=== PATIENT | female | born 1955 | race Caucasian/White ===

== ENCOUNTER → 2023-06-20 13:44 | Outpatient (REF) | payer MEDICARE, SELFPAY | LOC: WDC 13:44 | PROVIDERS: ATTENDING PHYSICIAN Family Medicine | DX: Z12.31 Encounter for screening mammogram for malignant neoplasm of breast (principal); M81.0 Age-related osteoporosis without current pathological fracture | CPT/HCPCS: 77063; 77067; 77080 ==

== ENCOUNTER 2023-12-10 18:18 | Emergency (ER) | payer MEDICARE, SELFPAY ==
[2023-12-10 18:22] VITALS: BP 113/95
[2023-12-10 18:34] LABS: % Basophils 0.6 % (0-2); % Immature Granulocytes 0.3 % (0-0.5); % Lymphocytes 24.3 % (20.5-51.1); % Monocytes 10.6 % (1.7-9.3); % Neutrophils 63.2 % (42.2-75.2); Absolute Eosinophils 0.1 10^3/uL (0-0.7); Absolute Lymphocytes 1.7 10^3/uL (1.2-3.4); Absolute Monocytes 0.7 10^3/uL (0.1-0.6); Absolute Neutrophils 4.4 10^3/uL (1.4-6.5); Hematocrit 36.7 % (37.0-47.0); Hemoglobin 13.2 g/dL (12.0-16.0); Mean Corpuscular Hgb 31.1 pg (27.0-31.0); Mean Corpuscular Volume 86.4 fL (81.0-99.0); Mean Platelet Volume 10.6 fL (7.4-10.4); Nucleated Red Blood Cells % 0 %; Platelet Count 258 10^3/uL (130-400); Red Blood Cell Count 4.25 10^6/uL (4.20-5.40); Red Cell Dist. Width 12.3 % (11.5-14.5)
[2023-12-10 19:06] LABS: ALT (SGPT) 24 U/L (0-35); AST (SGOT) 31 U/L (14-36); Albumin 4.6 g/dl (3.5-5.0); Alkaline Phosphatase 68 U/L (38-126); Blood Urea Nitrogen 17 mg/dl (7-17); Calcium 9.7 mg/dl (8.4-10.2); Carbon Dioxide 24 mmol/L (22-30); Chloride 101 mmol/L (98-107); Glucose 111 mg/dl (70-99); Potassium 4.2 mmol/L (3.5-5.1); Sodium 135 mmol/L (135-145); Total Bilirubin 0.4 mg/dl (0.2-1.3); Total Protein 7.2 g/dl (6.3-8.2); eGFR > 60.00
--- NOTE | 2023-12-10 21:07 | ED.GENMED ---
History of Present Illness
General
Chief Complaint: Musculo-Skeletal Complaint
Source: patient
Exam Limitations: none
Time Seen by Provider: 12/10/23 20:07
Nursing documentation reviewed up to this point in time: agreed with
History of Present Illness
History of Present Illness:
Patient is a 68-year-old female who presented to the with bilateral leg pain. Patient reports she saw urology, Dr. Vizcaino today for UTI symptoms was diagnosed with UTI and started on Bactrim. Took 1 Bactrim DS at 1:30 PM and at 4 PM developed
bilateral leg pain. She reports like it was very intense. She never had symptoms like this before. She had no fever no injury no redness. No numbness Tingling weakness. She went to urgent care and they recommend that she have blood work
checked and sent her here.
She reports since being here her pain is much better has subsided.
Review of Systems
Review of Systems
Allergies reviewed?: Yes
All Other Systems: ROS reviewed and negative except as documented in HPI and ROS
Constitutional: Reports no symptoms; Denies fever, fatigue or chills
Respiratory: Reports no symptoms
Cardiac: Reports no symptoms
ABD/GI: Reports no symptoms
: Reports frequency
Musculoskeletal: Reports other (Bilateral leg pain)
Skin: Reports no symptoms; Denies rash
Neurological: Reports no symptoms; Denies numbness
Hematologic/Lymphatic: Reports no symptoms
Psychiatric: Reports no symptoms
Phy Exam
General Physical Exam
General Presentation: no apparent distress
General age: appears stated age
General Skin: warm and dry
General Habitus: normal
General Mental: alert
General Hydration: appears well hydrated
Cardiovascular Exam
Cardiovascular Exam: regular rate/rhythm, no murmur and normal peripheral pulses
Pulmonary Exam
Pulmonary Exam: lungs clear and no respiratory distress
Neurological Exam
Neurological Exam: alert, oriented x3, no motor deficits and no sensory deficits
Musculoskeletal Exam
Musculoskeletal Exam: full ROM and other (Strong distal pulses to bilateral lower extremities normal inspection no erythema no swelling normal strength)
Skin Exam
Skin Exam: normal color and warm/dry
Psychiatric Exam
Psychiatric Exam: normal mood/affect
Course
Orders/Labs/Results
Orders:
Orders
12/10/23 18:28
CMP [Comprehensive Metabolic Panel] Urgent
Complete Blood Count/With Diff Urgent
Abnormal Lab Results
12/10/23
18:28
Hct 36.7 L %
(37.0-47.0)
MCH 31.1 H pg
(27.0-31.0)
MPV 10.6 H fL
(7.4-10.4)
Absolute Monos (auto) 0.7 H 10^3/uL
(0.1-0.6)
Monocytes % 10.6 H %
(1.7-9.3)
Glucose 111 H mg/dl
(70-99)
12/10/23 18:28
12/10/23 18:28
Vital Signs
Initial and Last Documented VS:
Initial Vital Signs
Temp Pulse Resp BP Pulse Ox
98.3 F 76 20 113/95 96
12/10/23 18:22 12/10/23 18:22 12/10/23 18:22 12/10/23 18:22 12/10/23 18:22
Last Documented Vital Signs
Temp Pulse Resp BP Pulse Ox
98.3 F 76 18 113/72 99
12/10/23 18:22 12/10/23 21:14 12/10/23 21:14 12/10/23 21:14 12/10/23 21:14
Cosmetic Consultant consulted with Physician
Cosmetic Consultant consulted with physician?: Yes
Name of Physician Consulted: DR Jarrett
MDM/Problems Addressed
MDM/Problems Addressed:
Patient is a 68-year-old female who presented with bilateral leg pain starting at 4 PM. She is attributing this to her taking 1 dose of Bactrim at 1:30 PM. She denies any other injury or cause of symptoms. Upon my exam however patient reports
that her symptoms were subsiding if she feels much better. She was initially started on Bactrim by urology today for UTI.
She presents awake alert no acute distress no abnormality on exam no obvious swelling redness to her leg she has strong pulses bilaterally normal exam. She is nontoxic. She denies any back pain. She denies any weakness lower extremities. Her
labs unremarkable.
She reports she will stop her Bactrim and call urology tomorrow morning.
It is unclear if Bactrim is the cause of her leg pain however there are no concerning findings on exam her labs unremarkable and she is feeling better. Discussed with ED attending. she is well hydrated and no other concerning causes/findings for
her s/s that are resolved.
Will d/c home
*Pulse Oximetry
Patient hypoxic: no
*Critical Care Note
Total Time (30-74mins, 75-104mins- exclusive of procedures): Not Applicable
ED Attending Note
-
Portions of this chart may have been created with voice recognition software.� Occasional wrong word or��sound alike� substitutions may have occurred due to the inherent limitations of voice recognition software.
Discharge Plan
Departure
Patient Disposition: Home (Routine Discharge)
Date of Disposition: 12/10/23
Time of Disposition: 21:05
Patient with high blood pressure during this ER visit?: Yes
Condition: Fair
Covid-19: Not Applicable
Discharge Problem:
Acute leg pain
Instructions: Muscle and Bone Pain (DC)
Referrals:
NONE,* [Active] -
Activity Restrictions/Additional Instructions:
As discussed return if any worsening of symptoms worsening leg pain fever chills redness. Follow-up with your urologist for antibiotic change call tomorrow.
Interventions
Interventions:
*Risk Screen - Suicide Last Done: 12/10/23 18:22
*General Assessment Last Done: 12/10/23 18:22
*Neglect/Abuse Screening Last Done: 12/10/23 18:22
ED- Fall Risk Assessment Last Done: 12/10/23 20:26
*ED COVID-19 Vaccine History Last Done: 12/10/23 20:26
*Nursing Disposition Last Done: 12/10/23 21:15
ED-Musculoskeletal Assessment Last Done: 12/10/23 20:26
Discharge Date and Time
Discharge Date/Time: 12/10/23 21:15
Print Language: MALAYSIAN
[2023-12-10 21:14] VITALS: BP 113/72
== END 2023-12-10 21:15 | disposition home or self-care (01) ==
LOC: EMR 18:18
PROVIDERS: Student in an Organized Health Care Education/Training Program; EMERGENCY PHYSICIAN Emergency Medicine; FAMILY PHYSICIAN Family Medicine
DX: M79.604 Pain in right leg (principal); M79.605 Pain in left leg; R03.0 Elevated blood-pressure reading, without diagnosis of hypertension; N39.0 Urinary tract infection, site not specified
CPT/HCPCS: 99283; 80053; 85025

== ENCOUNTER 2023-12-11 03:16 | Emergency (ER) | payer MEDICARE, SELFPAY ==
[2023-12-11 03:18] VITALS: BP 106/52
--- NOTE | 2023-12-11 03:22 | ED.GENMED ---
History of Present Illness
<ELLEN Herrera (Lenka) - Last Filed: 12/11/23 04:32>
General
Chief Complaint: Extremity Pain (non-traumatic)
Source: patient and spouse
Exam Limitations: none
Time Seen by Provider: 12/11/23 03:21
Nursing documentation reviewed up to this point in time: agreed with
History of Present Illness
History of Present Illness:
Pt is a 68 yo female with no PMHx who presents to the ED with worsening B/L leg pain x 1d. Pt was seen in ED 6 hours ago for leg pain after taking 1 dose of bactrim for her UTI. Pt had resolved upon discharge. Pt states since leaving the ED, she
took 2 ibuprofen at 2100. She awoke at 0200 this morning with B/L leg aching down the front and back, 'it feels like a deep muscle ache, but also similar to my sciatica'. She is most comfortable when standing and walking, extremely uncomfortable
when laying and sitting. The pain is improved with leaning forward. She took 2 more ibuprofen at 0300. Endorses some lower back pain near her sacrum. She denies weakness, numbness, tingling, imbalance, chest pain, dyspnea, abdominal pain, saddle
anesthesia. Pt is normally very active, walks 3 miles daily. Had no issues yesterday morning.
No hx of vascular disease, heart conditions, or neurologic problems.
Past History
<ELLEN Herrera (Lenka) - Last Filed: 12/11/23 04:32>
Social History
Tobacco: Non-smoker
Alcohol: None
Drug: None
Personal:
Living: with family
Phy Exam
<ELLEN Herrera (Lenka) - Last Filed: 12/11/23 04:32>
General Physical Exam
General Presentation: moderate distress (when sitting/laying supine)
General age: appears stated age
General Skin: warm and dry
General Habitus: normal
General Mental: alert
General Hydration: appears well hydrated
Cardiovascular Exam
Cardiovascular Exam: regular rate/rhythm and normal peripheral pulses
Pulmonary Exam
Pulmonary Exam: lungs clear and no respiratory distress
Gastrointestinal Exam
Gastrointestinal Exam: non tender, soft and non distended
Neurological Exam
Neurological Exam: alert, oriented x3, normal reflexs (achilles reflex intact b/l), no sensory deficits, speech normal and normal gait
Musculoskeletal Exam
Musculoskeletal Exam: full ROM, back pain (lower back, near sacrum), neuro vasc intact and other (positive straight leg raise)
Course
<ELLEN Herrera (Lenka) - Last Filed: 12/11/23 04:32>
Orders/Labs/Results
Orders:
Orders
12/11/23 03:40
Ketorolac [Toradol] 30 mg IM NOW STA
Vital Signs
Initial and Last Documented VS:
Initial Vital Signs
Temp Pulse Resp BP Pulse Ox
97.8 F 86 24 106/52 100
12/11/23 03:18 12/11/23 03:18 12/11/23 03:18 12/11/23 03:18 12/11/23 03:18
Last Documented Vital Signs
Temp Pulse Resp BP Pulse Ox
97.8 F 86 24 106/52 100
12/11/23 03:18 12/11/23 03:18 12/11/23 03:18 12/11/23 03:18 12/11/23 03:18
<Pramod Goss DO - Last Filed: 12/11/23 04:21>
Orders/Labs/Results
Orders:
Orders
12/11/23 03:40
Ketorolac [Toradol] 30 mg IM NOW STA
Vital Signs
Initial and Last Documented VS:
Initial Vital Signs
Temp Pulse Resp BP Pulse Ox
97.8 F 86 24 106/52 100
12/11/23 03:18 12/11/23 03:18 12/11/23 03:18 12/11/23 03:18 12/11/23 03:18
Last Documented Vital Signs
Temp Pulse Resp BP Pulse Ox
97.8 F 86 24 106/52 100
12/11/23 03:18 12/11/23 03:18 12/11/23 03:18 12/11/23 03:18 12/11/23 03:18
<ELLEN Herrera (Lenka) - Last Filed: 12/11/23 04:32>
MDM/Problems Addressed
Differential Diagnosis Includes:
ddx: sciatica vs disc herniation vs spinal stenosis
Pt presenting pacing in room, pain relieved by back extension, worse with flexion and sitting. Positive straight leg raise.
Plan to start on a short course of steroids and 1 dose IM toradol with f/u PCP. If sx persist consider PT for sciatica, or potentially MRI.
<ELLEN Herrera (Lenka) - Last Filed: 12/11/23 04:32>
*Critical Care Note
Total Time (30-74mins, 75-104mins- exclusive of procedures): Not Applicable
ED Attending Note
<ELLEN Herrera (Lenka) - Last Filed: 12/11/23 04:32>
-
Portions of this chart may have been created with voice recognition software.� Occasional wrong word or��sound alike� substitutions may have occurred due to the inherent limitations of voice recognition software.
<Pramod Goss DO - Last Filed: 12/11/23 04:21>
ED Attending Note
Patient seen and examined by attending physician: Yes
I performed the substantive portion of visit, reviewed & personally made and approve the management plan that is documented in note by myself or SAHRA.: Yes
I performed a history and physical exam of patient and discussed management with resident, I reviewed resident's note and agree with documented findings and plan of care.: Yes
ED Attending Note:
HPI: The patient presents with worsening low back pain. The pain radiates to the thighs. It was initially on 1 side but then migrated to both sides. She has had self diagnosed sciatica in the past. She reports no neurologic dysfunction such as
weakness in the legs or any bowel or bladder incontinence or retention. She has had no fevers. She was recently placed on Bactrim for UTI.
EXAM:
GENERAL: Well appearing in no distress
HEENT: Moist oral mucosa
ABDOMEN: Soft with no peritoneal signs, no tenderness, she has no CVA tenderness
NEUROLOGIC: Excellent strength all extremities, no coordination deficits, she has excellent strength in an L5 and S1 distribution
PSYCHIATRIC: Appropriate mental status, normal insight and judgement
EXTREMITIES: Nontender, no edema, moves all extremities equally
SKIN: No rash, no lesions
TIME OF INITIAL ENCOUNTER: 15 a.m.
NUMBER AND COMPLEXITY OF PROBLEMS ADDRESSED AT THE ENCOUNTER
� Chronic conditions affecting care: No significant past medical history
� Acute Exacerbation and/or Progression of Chronic Illness: This is an acute problem
� Differential Diagnosis includes: Sciatica, highly doubt AAA as she has no abdominal pain, pyelonephritis very unlikely as her pain is primarily at the lumbosacral region and radiates into the thighs
AMOUNT AND/OR COMPLEXITY OF DATA TO BE REVIEWED AND ANALYZED
� I performed an independent evaluation of and my interpretation is:
EKG:
CT:
X-rays:
Laboratory Studies:
Other:
� Review of other/old records: I reviewed the lab work from earlier in the evening which was unremarkable
� Clinical information was obtained by an independent historian: I spoke to the at bedside
� Prescriptions/Medications Considered but not given: Offered and considered narcotic analgesia however the patient declines
� Further testing considered but not performed: Considered MRI L-spine however the patient has no back pain red flags and no clear indication for MRI at this time
RISK OF COMPLICATIONS AND/OR MORBIDITY OR MORTALITY OF PATIENT MANAGEMENT
� Social determinants of health affecting care: Lives at home
� Discussion with other providers:
� Escalation of care including admission/observation vs risk of discharge considered: We gave a dose of Toradol and she does report improvement even before Toradol was given. Overall she appears more comfortable on reassessment
at 4:20 AM. Will give short course of prednisone and she is to follow-up with PMD
Discharge Plan
Departure
Prescriptions:
No Action
multivitamin Tablet
1 tab PO DAILY
Interventions
Interventions:
*Risk Screen - Suicide Last Done: 12/11/23 03:18
*General Assessment Last Done: 12/11/23 03:31
*Neglect/Abuse Screening Last Done: 12/11/23 03:18
ED- Fall Risk Assessment Last Done: 12/11/23 03:37
*ED COVID-19 Vaccine History Last Done: 12/11/23 03:31
ED-Skin Assessment Last Done: 12/11/23 03:37
ED-Peripheral Vascular Assessment Last Done: 12/11/23 03:37
ED-Musculoskeletal Assessment Last Done: 12/11/23 03:37
Discharge Date and Time
Print Language: CHINESE
[2023-12-11 03:28] VITALS: BMI 19.2
[2023-12-11] MEDS: TORADOL 30 MG IM (03:47)
[2023-12-11 04:20] VITALS: BP 126/56
== END 2023-12-11 04:29 | disposition home or self-care (01) ==
LOC: EMR 03:16
PROVIDERS: EMERGENCY PHYSICIAN Emergency Medicine; FAMILY PHYSICIAN Family Medicine
DX: M54.50 Low back pain, unspecified (principal); M79.652 Pain in left thigh; M79.651 Pain in right thigh; N39.0 Urinary tract infection, site not specified
CPT/HCPCS: 99284; 96372

== ENCOUNTER → 2024-07-29 10:55 | Outpatient (REF) | payer MEDICARE, SELFPAY | LOC: WDC 10:55 | PROVIDERS: ATTENDING PHYSICIAN Family Medicine | DX: Z12.31 Encounter for screening mammogram for malignant neoplasm of breast (principal) | CPT/HCPCS: 77063; 77067 ==